=== PATIENT | male | born 1955 | race Caucasian/White ===

== ENCOUNTER → 2019-04-06 | Outpatient (CLI) | payer OTHER ==
[~2019-04-06] MED LIST: ALBUTEROL INHAL17 GM IH; AMITRIPTYLINE H10 M1 PO; AZITHROMYCIN 2250 MG PO; CLONAZEPAM; CLONAZEPAM 0.50.5 M1 PO; ELAVIL; INDERAL; INDERAL40 MG PO; LEXAPRO; LEXAPRO 10 MG T10 MG PO; LISINOPRIL10 MG PO; VICODIN 5-3001 EACH PO
== END ==
LOC: M.LAB 05:22
DX: E87.6 Hypokalemia (principal)